=== PATIENT | female | born 1970 | race Caucasian/White ===

== ENCOUNTER 2016-05-30 12:12 | Emergency (ER) | payer MEDICAID ==
[2016-05-30] MEDS ORDERED: METOCLOPRAMIDE 10 MG/2 ML VIAL ONE (13:24)
[2016-05-30] MEDS ORDERED: DIPHENHYDRAMINE 50 MG/ML VIAL ONE (13:24)
[2016-05-30] MEDS ORDERED: SODIUM CHLORIDE 0.9% 1,000 ML ONE (13:25)
[2016-05-30] MEDS ORDERED: KETOROLAC 30 MG/ML VIAL ONE (13:25)
[2016-05-30] MEDS ORDERED: hydrOXYzine 25 MG TAB ONE (13:50)
== END 2016-05-30 15:03 | disposition left against medical advice (07) ==
LOC: ER 12:12
DX: Z53.21 Procedure and treatment not carried out due to patient leaving prior to being seen by health care provider (principal)
CPT/HCPCS: 96361; 96374; 96375